=== PATIENT | male | born 1955 | race Caucasian/White ===

== ENCOUNTER 2019-05-12 20:36 | Emergency (ER) | payer OTHER, MEDICARE ==
--- NOTE | 2019-05-12 20:46 | PDOC ---
Rapid Medical Evaluation Time Seen by Provider: 05/12/19 20:40 Medical Evaluation: 05/12/19 20:40 The patient presents to the ER for detox for opioids and prescription pain killers. He states he relapsed after his R wrist re-set for a fracture. Took two percocets within half an hour. He reports taking 8 percocets today. He also drinks alcohol Exam: no gross neuro deficits, R arm in cast Orders: labs, urine Pt to proceed to the ER for further evaluation Discharge Disposition - Diagnosis Desire for detoxification - Referrals Referrals: Teena Madsen [Primary Care Provider] - - Patient Instructions - Post Discharge Activity
[2019-05-12 20:47] VITALS: BMI 27.8
[2019-05-12 21:23] LABS: EOS % 2.1 % (0-4.5); HEMATOCRIT 41.8 % (35.4-49); MCH 32.9 pg (25.7-33.7); MCHC 33.4 g/dl (32.0-35.9); MEAN CELL VOLUME 98.7 fl (80-96); MEAN PLT VOLUME 8.4 fl (7.5-11.1); NEUT % 55.9 % (42.8-82.8); PLATELET COUNT 163 K/MM3 (134-434); RBC 4.24 M/mm3 (4.00-5.60); RDW 14.8 % (11.9-15.9); WHITE BLOOD COUNT 7.6 K/mm3 (4.0-10.0)
[2019-05-12 21:52] LABS: ALBUMIN 4.3 g/dl (3.4-5.0); BILIRUBIN,TOTAL 0.3 mg/dL (0.2-1); BLOOD UREA NITROGEN 23.5 mg/dL (7-18); CALCIUM 9.6 mg/dL (8.5-10.1); CREATININE 1.3 mg/dL (0.55-1.3); POTASSIUM 4.1 mmol/L (3.5-5.1); TOT PROT 7.2 g/dl (6.4-8.2)
--- NOTE | 2019-05-12 22:00 | PDOC ---
History of Present Illness - General Chief Complaint: Substance Abuse Stated Complaint: DETOX Time Seen by Provider: 05/12/19 20:40 History Source: Patient Exam Limitations: No Limitations - History of Present Illness Initial Comments: 64 year old male with PMH opioid abuse, ETOH abuse, HTN, COPD, Factor 5 Leiden presented to ED for opioid detox. Pt reported since his recent orthopedic surgery, he has started taking Percocet again. He reported that he drinks 1L vodka a day, smokes nicotine and marijuana daily, and used 10 percocet pills today. Pt reported he last took any pills at 1530 today. Pt denied IV drug abuse , SI, HI. Pt denied nausea, vomiting, diarrhea, shortness of breath, chest pain. Pt reported diffuse pain all over. ROS General: denied fever, chills, generalized weakness. HEENT: denied sore throat, rhinorrhea, ear pain. Cardiovascular: denied chest pain, palpitations, syncope, diaphoresis. Respiratory: denied shortness of breath, cough, sputum production, hemoptysis. Gastrointestinal: denied abdominal pain, nausea, vomiting, diarrhea, constipation, blood in stool. Genitourinary: denied dysuria, increased urinary frequency, hematuria, urinary incontinence, flank pain. Back: denied back pain. Musculoskeletal: denied joint pain, muscle pain, joint swelling. Neurological: denied headache, dizziness, numbness, tingling, weakness. Integumentary: denied rash, laceration, abrasion. Hematologic/Lymphatic: denied bruising or bleeding. PE Constitutional: Well-nourished, Well-developed, appearing stated age. HEENT: head is normocephalic, atraumatic. EOMI. PERRLA. no posterior pharyngeal erythema.no tonsillar swelling or exudates bilaterally. uvula midline. no peritonsillar swelling, tenderness or abscess. no jaw tenderness or misalignment. no tongue fasciculations. Neck: supple. Full ROM. Cardiovascular: regular heart rhythm. no murmurs. no pericardial friction rub. Respiratory: clear to auscultation bilaterally. no crackles, rhonchi or wheezing. no stridor. Gastrointestinal: soft, nontender. normal bowel sounds. no rebound, guarding, masses. Extremities: peripheral pulses intact. no lower extremity edema. Neurological: CN 2-12 grossly intact. moves all four extremities. Psych: intoxicated. awake, alert, oriented x3. follows commands. answers questions appropriately. Past History - Past Medical History Allergies/Adverse Reactions: Allergies Allergy/AdvReac Type Severity Reaction Status Date / Time No Known Allergies Allergy Verified 05/13/19 12:04 Home Medications: Ambulatory Orders Amlodipine Besylate 10 mg PO DAILY 05/12/19 Apixaban [Eliquis] 5 mg PO DAILY 05/12/19 Multivitamin [One-Daily Multi-Vitamin] 1 each PO DAILY 05/12/19 Albuterol Sulfate Inhaler - 2 inhaler PO Q4HWA 05/13/19 Alprazolam [Alprazolam ER] 0.5 mg PO DAILY 05/13/19 Budesonide/Formeterol Fumarate [SYMBICORT 160/4.5mcg -] 2 inh PO BID 05/13/19 Ipratropium/Albuterol Sulfate [Combivent Respimat Inhal [place]] 4 gm IH BID 05/13 traZODone HCL [Trazodone HCl] 50 mg PO HS 05/13/19 HTN: Yes Other medical history: factor V - Suicide/Smoking/Psychosocial Hx Smoking History: Current every day smoker Number of Cigarettes Smoked Daily: 6 Information on smoking cessation initiated: No Hx Alcohol Use: Yes Drug/Substance Use Hx: Yes (oxycodone,hydrocodone,diazepam,trazodone) *Physical Exam - Vital Signs Last Vital Signs Temp Pulse Resp BP Pulse Ox 98.6 F 89 18 130/72 93 L 05/12/19 20:41 05/12/19 20:41 05/12/19 20:41 05/12/19 20:41 05/12/19 20:41 ED Treatment Course - LABORATORY CBC & Chemistry Diagram: 05/12/19 21:06 05/13/19 07:00 - ADDITIONAL ORDERS Additional order review: Laboratory Results 05/12/19 05/12/19 21:06 21:06 Sodium 142 Potassium 4.1 Chloride 110 H Carbon Dioxide 25 Anion Gap 7 L BUN 23.5 H Creatinine 1.3 Est GFR (CKD-EPI)AfAm 67.30 Est GFR (CKD-EPI)NonAf 58.07 Random Glucose 88 Calcium 9.6 Total Bilirubin 0.3 AST 35 ALT 55 Alkaline Phosphatase 73 Total Protein 7.2 Albumin 4.3 Acetaminophen 10.8 05/12/19 21:06 RBC 4.24 MCV 98.7 H MCHC 33.4 RDW 14.8 MPV 8.4 Neutrophils % 55.9 Lymphocytes % 36.0 Monocytes % 5.0 Eosinophils % 2.1 Basophils % 1.0 Medical Decision Making - Medical Decision Making 64 year old male with above PMH presented to ED for opioid and ETOH detox. Initial Vital Signs Temp Pulse Resp BP Pulse Ox 98.6 F 89 18 130/72 93 L 05/12/19 20:41 05/12/19 20:41 05/12/19 20:41 05/12/19 20:41 05/12/19 20:41 Afebrile. No tachycardia. No tachypnea. No hypotension. Mild hypoxia on room air. EKG performed at 2053: rate 78, regular rhythm, normal axis, normal intervals, no acute ST changes, QTc 419. Laboratory Results - last 24 hr 05/12/19 05/12/19 05/12/19 21:06 21:06 21:06 WBC 7.6 RBC 4.24 Hgb 14.0 Hct 41.8 MCV 98.7 H MCH 32.9 MCHC 33.4 RDW 14.8 Plt Count 163 MPV 8.4 Absolute Neuts (auto) 4.2 Neutrophils % 55.9 Lymphocytes % 36.0 Monocytes % 5.0 Eosinophils % 2.1 Basophils % 1.0 Nucleated RBC % 0 Sodium 142 Potassium 4.1 Chloride 110 H Carbon Dioxide 25 Anion Gap 7 L BUN 23.5 H Creatinine 1.3 Est GFR (CKD-EPI)AfAm 67.30 Est GFR (CKD-EPI)NonAf 58.07 Random Glucose 88 Calcium 9.6 Total Bilirubin 0.3 AST 35 ALT 55 Alkaline Phosphatase 73 Total Protein 7.2 Albumin 4.3 Acetaminophen 10.8 No leukocytosis. No anemia. No electrolyte abnormalities. No JUSTUS. Dehydrated. -IVF ordered Acetaminophen level within normal range. -Will trend at 4 hours -ETOH level added on 05/12/19 22:34 [facility] called by Dr. Velasquez, reported there are no male beds available tonight. Can send pt at 0800 tomorrow. 05/12/19 23:17 Pt found to be drinking alcohol from water bottle. Alcohol thrown away. 05/13/19 00:04 ETOH 240 Salicyclates 3.3 [facility] Poison Control consulted. 05/13/19 00:25 [facility] Poison Control advised repeating CMP/acetaminophen/salicyclate/etoh. Above ordered. If uptrending to give NAC. 05/13/19 01:01 Pt reassessed, sleeping comfortably, arousable to voice. 05/13/19 01:32 Lab called about salicyclate not pending. Reported the machine is running it. 05/13/19 01:46 ETOH 157 Salicyclate 2.5 Acetaminophen level 3.5 Pt signed out to night team. Plan for repeat CMP/acetaminophen/salicyclate at 0600 today. Plan for transport to [facility] at 0800 when beds open up. *DC/Admit/Observation/Transfer Diagnosis at time of Disposition: Desire for detoxification - Discharge Dispostion Disposition: HOME Condition at time of disposition: Improved - Referrals Referrals: Teena Madsen [Primary Care Provider] - - Patient Instructions Additional Instructions: Your lab results were normal, and you are medically cleared for detox. Please return to the Emergency Department if you develop severe withdrawal symptoms, including shaking, sweating, seizures, or hallucinations. Please follow up at [facility] for detox if they have a bed available. - Post Discharge Activity
[2019-05-12] MEDS ORDERED: SODIUM CHLORIDE 1,000 ML IV STA (22:08)
[2019-05-12] MEDS ORDERED: DICYCLOMINE HCL 10 MG CAPSULE PO ONE (22:20)
[2019-05-12] MEDS ORDERED: chlordiazePOXIDE HCL 25 MG CAPSULE PO ONE ×2 (22:20→23:55)
[2019-05-12] MEDS ORDERED: DICYCLOMINE HCL 10 MG CAPSULE ONE (22:50)
[2019-05-12] MEDS ORDERED: chlordiazePOXIDE HCL 25 MG CAPSULE ONE (22:50)
[2019-05-12] MEDS ORDERED: THIAMINE HCL 100 MG TABLET (FP) PO ONE (23:16)
[2019-05-12] MEDS ORDERED: MULTIVITAMINS (DAILY MVI) TABLET (FP) PO ONE (23:16)
[2019-05-12] MEDS ORDERED: FOLIC ACID 1 MG TABLET (FP) PO ONE (23:17)
[2019-05-12] MEDS ORDERED: THIAMINE HCL 100 MG TABLET (FP) ONE (23:37)
[2019-05-12] MEDS ORDERED: FOLIC ACID 1 MG TABLET (FP) ONE (23:37)
--- NOTE | 2019-05-12 23:39 | PDOC ---
Documentation entered by Shania Jones SCRIBE, acting as scribe for Mimi Velasquez DO. Mimi Velasquez DO: This documentation has been prepared by the Robert evangelista Brenda, SCRIBE, under my direction and personally reviewed by me in its entirety. I confirm that the documentation accurately reflects all work, treatment, procedures, and medical decision making performed by me. Attending Attestation - Resident Resident Name: Madeleine Willard - ED Attending Attestation I have performed the following: I have examined & evaluated the patient, The case was reviewed & discussed with the resident, I agree w/resident's findings & plan, Exceptions are as noted - HPI HPI: 05/12/19 23:27 The patient is a 64 year old male, with a significant PMH of opioid abuse, HTN, COPD and Factor 5 Leiden who presents to the emergency department asking for opioid and alcohol detox. Patient reported that he recently broke s right rm, and was prescribed oxycodone 10 mg. He also reports drinking 1L vodkas daily, smoking nicotine and marijuaa daily and used 10 oxycodone pills today at 3: 30pm. He also states having diffuse pain all over. The patient denies chest pain, shortness of breath. Denies fever, chills, nausea , vomiting, diarrhea and constipation. Denies dysuria, frequency, urgency and hematuria. Allergies: NKA Social history: Tobacco use, alcohol use, opioid use, marijuana use. PCP: [facility] - Physicial Exam PE: 05/12/19 23:27 GENERAL: (+) Intoxicated. (+) Smell of alcohol on breath. (+)Disheveled appearance. Awake, alert, and in no acute distress. HEAD: No signs of trauma EYES: PERRLA, EOMI, sclera anicteric, conjunctiva clear ENT: Auricles normal inspection, hearing grossly normal, nares patent, oropharynx clear without exudates. Moist mucosa NECK: Normal ROM, supple, no lymphadenopathy, JVD, or masses LUNGS: (+) Mild expiratory wheezes. Breath sounds equal. No crackles. HEART: Regular rate and rhythm, normal S1 and S2, no murmurs, rubs or gallops ABDOMEN: Soft, nontender, normoactive bowel sounds. No guarding, no rebound. No masses EXTREMITIES: (+) Right wrist in splint. Normal range of motion, no edema. No clubbing or cyanosis. No cords, erythema, or tenderness NEUROLOGICAL: Cranial nerves II through XII grossly intact. Normal speech, normal gait SKIN: Warm, Dry, normal turgor, no rashes or lesions noted. - Medical Decision Making 05/12/19 23:29 I, Dr. Mimi Velasquez, DO, attest that this document has been prepared under my direction and personally reviewed by me in its entirety. I further attest, that it accurately reflects all work, treatment, procedures and medical decision -making performed by me. a/p: 64yo male with opiate abuse/addiction and etoh abuse -pt arrives intoxicated stating he took 4 oxycodone 10mg/325mg tabs earlier tonight -states he took trazadone and xanax -states he wants detox -pt with a water bottle at the bedside filled with vodka which was removed by me -pt with smell of etoh on his breath -pt with splint to R wrist -pt denies si/hi -denies cp/sob, abd pain, no n/v/d -no tongue fasciculations/no tremors -no abd pain, no cramping -will send labs to medically clear -will monitor in the ED - pt currently not in withdrawal -case discussed with [facility] - bed not available until 8am tomorrow 05/13/19 00:17 pt with elevated asa, apap, etoh level call placed to poison control by the resident will continue ivf hydration and monitoring 05/13/19 01:46 repeat apap 3.5 etoh down to 150 pt currently sleeping, arousable denies taking asa, but states he takes excedrin for proctor 05/13/19 01:46 per poison control - monitor labs, if apap increases start NAC 05/13/19 01:47 asa 2.5 pt signed out to the oncoming team pending transfer to [facility] in the AM
[2019-05-13 01:41] LABS: BILIRUBIN,TOTAL 0.4 mg/dL (0.2-1); BLOOD UREA NITROGEN 27.6 mg/dL (7-18); CALCIUM 8.8 mg/dL (8.5-10.1); CREATININE 1.3 mg/dL (0.55-1.3); POTASSIUM 3.7 mmol/L (3.5-5.1); TOT PROT 6.9 g/dl (6.4-8.2)
[2019-05-13] MEDS ORDERED: SODIUM CHLORIDE 0.9% 1000 ML INFUS.BAG IV ONE (01:47)
--- NOTE | 2019-05-13 03:22 | PDOC ---
*Physical Exam - Vital Signs Last Vital Signs Temp Pulse Resp BP Pulse Ox 98.6 F 89 18 130/72 93 L 05/12/19 20:41 05/12/19 20:41 05/12/19 20:41 05/12/19 20:41 05/12/19 20:41 ED Treatment Course - LABORATORY CBC & Chemistry Diagram: 05/12/19 21:06 05/13/19 01:00 - ADDITIONAL ORDERS Additional order review: Laboratory Results 05/13/19 05/13/19 05/13/19 01:10 01:00 01:00 Sodium 142 Potassium 3.7 Chloride 107 Carbon Dioxide 26 Anion Gap 9 BUN 27.6 H Creatinine 1.3 Est GFR (CKD-EPI)AfAm 67.30 Est GFR (CKD-EPI)NonAf 58.07 Random Glucose 105 Calcium 8.8 Total Bilirubin 0.4 AST 34 ALT 53 Alkaline Phosphatase 65 Total Protein 6.9 Albumin 4.0 Salicylates 2.5 L Acetaminophen 3.5 Alcohol, Quantitative 157.5 H 05/13/19 05/12/19 05/12/19 01:00 21:06 21:06 Sodium 142 Potassium 4.1 Chloride 110 H Carbon Dioxide 25 Anion Gap 7 L BUN 23.5 H Creatinine 1.3 Est GFR (CKD-EPI)AfAm 67.30 Est GFR (CKD-EPI)NonAf 58.07 Random Glucose 88 Calcium 9.6 Total Bilirubin 0.3 AST 35 ALT 55 Alkaline Phosphatase 73 Total Protein 7.2 Albumin 4.3 Salicylates 3.3 Acetaminophen 10.8 Alcohol, Quantitative 158.4 H 240.8 H 05/12/19 21:06 RBC 4.24 MCV 98.7 H MCHC 33.4 RDW 14.8 MPV 8.4 Neutrophils % 55.9 Lymphocytes % 36.0 Monocytes % 5.0 Eosinophils % 2.1 Basophils % 1.0 - Medications Given in the ED: ED Medications Discontinued Medications Generic Name Dose Route Start Last Admin Trade Name Freq PRN Reason Stop Dose Admin Chlordiazepoxide HCl 50 mg 05/12/19 22:20 05/13/19 00:43 Librium - PO 05/12/19 22:21 Not Given ONCE ONE Chlordiazepoxide HCl 50 mg 05/12/19 23:55 05/12/19 23:58 Librium - PO 05/12/19 23:56 50 mg ONCE ONE Administration Dicyclomine HCl 10 mg 05/12/19 22:20 05/12/19 22:50 Bentyl - PO 05/12/19 22:21 10 mg ONCE ONE Administration Folic Acid 1 mg 05/12/19 23:17 05/13/19 00:43 Folic Acid - PO 05/12/19 23:18 1 mg ONCE ONE Administration Sodium Chloride 1,000 mls @ 1,000 mls/hr 05/12/19 22:08 05/12/19 22:50 Normal Saline - IV 05/12/19 23:07 1,000 mls/hr ASDIR STA Administration Multivitamins/Minerals/Vitamin C 1 tab 05/12/19 23:16 05/13/19 00:43 Tab-A-Vit - PO 05/12/19 23:17 1 tab ONCE ONE Administration Sodium Chloride 1,000 ml 05/13/19 01:47 05/13/19 02:35 Normal Saline - IV 05/13/19 01:48 1,000 ml ONCE ONE Administration Thiamine HCl 100 mg 05/12/19 23:16 05/13/19 00:43 Vitamin B1 - PO 05/12/19 23:17 100 mg ONCE ONE Administration Medical Decision Making - Medical Decision Making 05/13/19 03:[address] Sudheer David CMP, ASA, Tylenol levels at 6AM Send to [facility] at 8AM 05/13/19 03:44 Updated poison control, agreed with plan for 6AM repeat 05/13/19 06:45 Third set CMP / ASA / Acetaminophen sent Patient for transfer to [facility] at 8AM Signed out to day team *DC/Admit/Observation/Transfer Diagnosis at time of Disposition: Desire for detoxification - Discharge Dispostion Condition at time of disposition: Improved Decision to Admit order: No - Referrals Referrals: Teena Madsen [Primary Care Provider] - - Patient Instructions - Post Discharge Activity
[2019-05-13 07:58] LABS: ALBUMIN 3.4 g/dl (3.4-5.0); BILIRUBIN,TOTAL 0.4 mg/dL (0.2-1); BLOOD UREA NITROGEN 25.4 mg/dL (7-18); CALCIUM 8.6 mg/dL (8.5-10.1); CREATININE 1.1 mg/dL (0.55-1.3); POTASSIUM 5.3 mmol/L (3.5-5.1); TOT PROT 6.3 g/dl (6.4-8.2)
--- NOTE | 2019-05-13 08:33 | PDOC ---
*Physical Exam - Vital Signs Last Vital Signs Temp Pulse Resp BP Pulse Ox 97.3 F L 77 17 115/77 93 L 05/12/19 22:25 05/12/19 22:25 05/12/19 22:25 05/12/19 22:25 05/12/19 22:25 ED Treatment Course - LABORATORY CBC & Chemistry Diagram: 05/12/19 21:06 05/13/19 07:00 - ADDITIONAL ORDERS Additional order review: Laboratory Results 05/13/19 05/13/19 05/13/19 07:00 07:00 07:00 Sodium 142 Potassium 5.3 H Chloride 110 H Carbon Dioxide 29 Anion Gap 4 L BUN 25.4 H Creatinine 1.1 Est GFR (CKD-EPI)AfAm 82.37 Est GFR (CKD-EPI)NonAf 71.07 Random Glucose 85 Calcium 8.6 Total Bilirubin 0.4 AST 47 H ALT 48 Alkaline Phosphatase 57 Total Protein 6.3 L Albumin 3.4 Salicylates < 1.7 L Acetaminophen <2.0 Alcohol, Quantitative 05/13/19 05/13/19 05/13/19 01:10 01:00 01:00 Sodium 142 Potassium 3.7 Chloride 107 Carbon Dioxide 26 Anion Gap 9 BUN 27.6 H Creatinine 1.3 Est GFR (CKD-EPI)AfAm 67.30 Est GFR (CKD-EPI)NonAf 58.07 Random Glucose 105 Calcium 8.8 Total Bilirubin 0.4 AST 34 ALT 53 Alkaline Phosphatase 65 Total Protein 6.9 Albumin 4.0 Salicylates 2.5 L Acetaminophen 3.5 Alcohol, Quantitative 157.5 H 05/13/19 05/12/19 05/12/19 01:00 21:06 21:06 Sodium 142 Potassium 4.1 Chloride 110 H Carbon Dioxide 25 Anion Gap 7 L BUN 23.5 H Creatinine 1.3 Est GFR (CKD-EPI)AfAm 67.30 Est GFR (CKD-EPI)NonAf 58.07 Random Glucose 88 Calcium 9.6 Total Bilirubin 0.3 AST 35 ALT 55 Alkaline Phosphatase 73 Total Protein 7.2 Albumin 4.3 Salicylates 3.3 Acetaminophen 10.8 Alcohol, Quantitative 158.4 H 240.8 H 05/12/19 21:06 RBC 4.24 MCV 98.7 H MCHC 33.4 RDW 14.8 MPV 8.4 Neutrophils % 55.9 Lymphocytes % 36.0 Monocytes % 5.0 Eosinophils % 2.1 Basophils % 1.0 - Medications Given in the ED: ED Medications Discontinued Medications Generic Name Dose Route Start Last Admin Trade Name Alvin PRN Reason Stop Dose Admin Chlordiazepoxide HCl 50 mg 05/12/19 22:20 05/13/19 00:43 Librium - PO 05/12/19 22:21 Not Given ONCE ONE Chlordiazepoxide HCl 50 mg 05/12/19 23:55 05/12/19 23:58 Librium - PO 05/12/19 23:56 50 mg ONCE ONE Administration Dicyclomine HCl 10 mg 05/12/19 22:20 05/12/19 22:50 Bentyl - PO 05/12/19 22:21 10 mg ONCE ONE Administration Folic Acid 1 mg 05/12/19 23:17 05/13/19 00:43 Folic Acid - PO 05/12/19 23:18 1 mg ONCE ONE Administration Sodium Chloride 1,000 mls @ 1,000 mls/hr 05/12/19 22:08 05/12/19 22:50 Normal Saline - IV 05/12/19 23:07 1,000 mls/hr ASDIR STA Administration Multivitamins/Minerals/Vitamin C 1 tab 05/12/19 23:16 05/13/19 00:43 Tab-A-Vit - PO 05/12/19 23:17 1 tab ONCE ONE Administration Sodium Chloride 1,000 ml 05/13/19 01:47 05/13/19 02:35 Normal Saline - IV 05/13/19 01:48 1,000 ml ONCE ONE Administration Thiamine HCl 100 mg 05/12/19 23:16 05/13/19 00:43 Vitamin B1 - PO 05/12/19 23:17 100 mg ONCE ONE Administration Medical Decision Making - Medical Decision Making 05/13/19 08:32 Sign out received from Dr. Marrero. 64M presenting for alcohol, opioid detox. Plan for repeat CMP result, then transport back to [facility] for detox. 05/13/19 08:46 CMP resulted, plan for transport to [facility] via security after repeat vitals. *DC/Admit/Observation/Transfer Diagnosis at time of Disposition: Desire for detoxification - Discharge Dispostion Condition at time of disposition: Improved Decision to Admit order: No - Referrals Referrals: Teena Madsen [Primary Care Provider] - - Patient Instructions Additional Instructions: Your lab results were normal, and you are medically cleared for detox. Please return to the Emergency Department if you develop severe withdrawal symptoms, including shaking, sweating, seizures, or hallucinations. Please follow up at [facility] for detox if they have a bed available. - Post Discharge Activity
[2019-05-13 09:06] VITALS: BP 142/72; PULSE 87; TEMP 98.1
--- NOTE | 2019-05-13 14:23 | EKG ---
Test Reason : Blood Pressure : / mmHG Vent. Rate : 078 BPM Atrial Rate : 078 BPM P-R Int : 194 ms QRS Dur : 106 ms QT Int : 368 ms P-R-T Axes : 073 068 079 degrees QTc Int : 419 ms NORMAL SINUS RHYTHM POSSIBLE LEFT ATRIAL ENLARGEMENT INCOMPLETE RIGHT BUNDLE BRANCH BLOCK SEPTAL INFARCT , AGE UNDETERMINED ABNORMAL ECG NO PREVIOUS ECGS AVAILABLE Confirmed by BEVERLEY ALFRED MD ([id number]) on 05/13/2019 2:23:18 PM Referred By: Confirmed By:BEVERLEY ALFRED MD
== END 2019-05-13 09:02 | disposition other institution (70) ==
LOC: JER 20:36
PROC: 3E0337Z Introduction of Electrolytic and Water Balance Substance into Peripheral Vein, Percutaneous Approach (ICD-10-PCS; principal; 2019-05-12)
DX: F10.129 Alcohol abuse with intoxication, unspecified (principal); F11.10 Opioid abuse, uncomplicated; F12.10 Cannabis abuse, uncomplicated; I10 Essential (primary) hypertension; J44.9 Chronic obstructive pulmonary disease, unspecified; D68.51 Activated protein C resistance; F17.210 Nicotine dependence, cigarettes, uncomplicated; E86.0 Dehydration; Y90.8 Blood alcohol level of 240 mg/100 ml or more
CPT/HCPCS: 36415; 80053; 80307; 85025; 93005; 93010; 99284-25; J7030

== ENCOUNTER 2019-05-13 10:48 | Inpatient (IN) | payer OTHER ==
[2019-05-13 12:32] VITALS: BMI 31.6
--- NOTE | 2019-05-13 13:18 | HP ---
CIWA Score Nausea/Vomitin-No Nausea/No Vomiting Muscle Tremors: 1-None Visible, but [place] Anxiety: 0-No Anxiety, at Ease Agitation: 0-Normal Activity Paroxysmal Sweats: No Perspiration Orientation: 0-Oriented Tacttile Disturbances: 0-None Auditory Disturbances: 0-None Visual Disturbances: 0-None Headache: 0-None Present CIWA-Ar Total Score: 1 - Admission Criteria [facility]ASAS Guidelines: Admission for Medically Managed Detox: Requires at least one of the followin. CIWA greater than 12 2. Seizures within the past 24 hours 3. Delirium tremens within the past 24 hours 4. Hallucinations within the past 24 hours 5. Acute intervention needed for co occurring medical disorder 6. Acute intervention needed for co occurring psychiatric disorder 7. Severe withdrawal that cannot be handled at a lower level of care (continued vomiting, continued diarrhea, abnormal vital signs) requiring intravenous medication and/or fluids 8. Admission [facility] Chief Complaint: detox from EtOH, opioids Allergies/Adverse Reactions: Allergies Allergy/AdvReac Type Severity Reaction Status Date / Time No Known Allergies Allergy Verified 05/13/19 12:04 History of Present Illness: 64 year old male with PMH opioid abuse, ETOH abuse, HTN, COPD, Factor 5 Leiden, h/o leg DVT(on Eliquis), RUE fx after falling down a few steps onto sidewalk( February 2019), presented to [facility] for opioid, EtOH detox. Takes oxycodones x4-6 10mg pills daily. Last usage in the AM. First prescribed opioids 1982 for broken back. Has rx for oxycodone 10. Denies opioid-related blackouts, OD. Drinks 1L vodka daily. First usage in the noon-time. Regular drinking since mid- 31yo. Last alcoholic drink at ~1130. Has had "thousands" of black-outs. Has slight tremors after not drinking. Denies seizures. Takes diazepam x2 for sleep every night. Cocaine use years prior. Denies heroin, IVDU. Smokes MJ daily. Smokes 1pack per 2-3days. Lives alone in his mother's house. Retire automobile and property underwriter. DWI 2011. Incarcerated for 3ys due to DWI. Last detox-rehab was [facility] February 2019 but left early d/t of his mother. - Ebola screening Have you traveled outside of the country in the last 21 days: No Have you had contact with anyone from an Ebola affected area: No Do you have a fever: No - Review of Systems EENT: denies: Blurred Vision, Double Vision, Difficulty Swallowing Respiratory: reports: Wheezing. denies: Cough, Shortness of Breath, Productive cough Cardiac: denies: Chest Pain, Palpitations GI: denies: Abdominal Distended, Constipated, Diarrhea, Nausea, Vomiting : denies: Burning, Frequency Musculoskeletal: reports: Back Pain, Joint Pain (shoulders b/l, knee/s bl, Right elbow), Muscle Weakness (Right-handed weakness) Neuro: denies: Headache, Numbness, Seizure, Tremors, Unsteady Gait Patient History - Patient Medical History Hx Chronic Obstructive Pulmonary Disease (COPD): No Hx Hypertension: Yes - Patient Surgical History Hx Orthopedic Surgery: Yes (hips replacement b/l, Right elbow, Right knee) - Smoking Cessation Smoking history: Current every day smoker Have you smoked in the past 12 months: Yes Aproximately how many cigarettes per day: 6 Initiated information on smoking cessation: No - Substances abused Alcohol Substance route: Oral Frequency: Daily Amount used: 1- 1.75 litres vodka Age of first use: 22 Date of last use: 05/13/19 Other Other (specify): hydrocodone/hydrocodone Substance route: Oral Frequency: Daily Amount used: 6-8 Age of first use: 21 Date of last use: 05/13/19 Admission Physical Exam S - Vital Signs Vital Signs: Vital Signs - 24 hr 05/13/19 12:17 Temperature 97.9 F Pulse Rate 80 Respiratory 16 Rate Blood Pressure 152/98 - Physical General Appearance: Yes: No Apparent Distress, Obese. No: Irritable, Sweating, Anxious HEENTM: Yes: Normocephalic. No: Pale Conjunctivae R, Pale Conjunctivae L, Scleral Ictenus R, Scleral Ictenus L Respiratory: Yes: No Accessory Muscle Use, Wheezing (expiratory wheezes) Neck: Yes: Supple, Trachea in good position Cardiology: Yes: Regular Rhythm, Regular Rate, S1, S2. No: Irregularly Irregular Abdominal: Yes: Non Tender, Soft, Protuberent. No: Distended, Guarding Extremities: Yes: Other (RUE in short cast. Right hand with weakness in flexion/ extension/adduction/abduction of fingers; sensation intact) Neurological: Yes: Fully Oriented, Alert Breathalyzer - Breathalyzer Breathalyzer: 0 Urine Drug Screen - Test Device Lot number: [id number] Expiration date: 01/21/21 - Control Is test valid?: Yes - Results Drug screen NEGATIVE: No Urine drug screen results: OXY-Oxycodone, BZO-Benzodiazepines Inpatient Rehab Admission - Rehab Decision to Admit Inpatient rehab admission?: No
[2019-05-13] MEDS ORDERED: MAG HYDROX/AL HYDROX/SIMETH 30 ML UNIT-DOSE CUP PO PRN (14:05)
[2019-05-13] MEDS ORDERED: ACETAMINOPHEN 325 MG TABLET (FP) PO PRN (14:05)
[2019-05-13] MEDS ORDERED: MELATONIN 5 MG TABLETS PO PRN (14:05)
[2019-05-13] MEDS ORDERED: MAGNESIUM HYDROX 2400MG/30ML ORAL SUSPENSION 30 ML CUP PO PRN (14:05)
[2019-05-13] MEDS ORDERED: MENTHOL/PHENOL 1 EACH UD MM PRN (14:05)
[2019-05-13] MEDS ORDERED: hydrOXYzine PAMOATE 25 MG CAPSULE (FP) PO PRN (14:05)
[2019-05-13] MEDS ORDERED: IBUPROFEN 400 MG TABLET (FP) PO PRN (14:05)
[2019-05-13] MEDS ORDERED: chlordiazePOXIDE HCL 25 MG CAPSULE PO PRN (14:05)
[2019-05-13] MEDS ORDERED: MAGNESIUM CITRATE 300 ML BOTTLE PO PRN (14:05)
[2019-05-13] MEDS ORDERED: BISMUTH SUBSALICYLATE 524 MG/30 ML UD PO PRN (14:05)
--- NOTE | 2019-05-13 14:22 | PN ---
Teaching Attending Note Name of Resident: Preet Blanchard ATTENDING PHYSICIAN STATEMENT I saw and evaluated the patient. I reviewed the resident's note and discussed the case with the resident. I agree with the resident's findings and plan as documented. SUBJECTIVE: 64 y.o. male for etoh detox , transferred form [facility] where he hwas overnight for detox, was given 1 dose of Librium in the ED . Reports liquor several bottles /day since 30's , + blackouts, denies seizures, + occasional tremors if not drinking , starts drinking around noon , multiple DWI s in the past " close to 10 " , longest sobriety while incarcerated for DWI , latest use yesterday in the ED per medical record notes pt had bottle of alcohol in ED . Reports Oxycodone use rx and taking more than rx , not ready to d/c oxycodone use , planning to return to prescriber for further rx . cocaine use - remote cannabis- daily tobacco : 1/2 ppd PMHx: HTN, COPD, Factor 5 [place], h/o leg DVT, RUE fx after falling down a few steps onto sidewalk(February 2019), OBJECTIVE: wnwd , anxious , agitated Vital Signs - 24 hr 05/13/19 12:17 Temperature 97.9 F Pulse Rate 80 Respiratory 16 Rate Blood Pressure 152/98 ASSESSMENT AND PLAN: ETOH dependence - Librium taper pt is not agreeable to d/c Oxycodone use at this time .
[2019-05-13] MEDS ORDERED: ALBUTEROL SO4 2.5/IPRATROPIUM 0.5 INH SOL 3 ML VIAL.NEB. NEB PRN (16:02)
[2019-05-13] MEDS: chlordiazePOXIDE HCL 25 MG CAPSULE PO SCH ×2 (17:15→22:11)
[2019-05-13] MEDS ORDERED: BUDESONIDE/FORMETEROL FUMARATE 160/4.5 mcg INHALER IH SCH (22:00)
[2019-05-13] MEDS ORDERED: PATIENT'S OWN MEDICATION (NON-FORMULARY) (Ipratropium/Albuterol Sulfate [Combivent Respima IH SCH (22:00)
[2019-05-13] MEDS: APIXABAN 5 MG TABLET PO SCH (22:11)
[2019-05-13] MEDS: traZODone HCL 50 MG TABLET (FP) PO SCH (22:12)
[2019-05-13] MEDS: THIAMINE HCL 100 MG TABLET (FP) PO SCH (22:12)
[2019-05-14] MEDS: chlordiazePOXIDE HCL 25 MG CAPSULE PO SCH ×4 (05:32→22:05)
[2019-05-14] MEDS: ALBUTEROL SO4 8 GM HFA INHALER IH PRN (05:34)
[2019-05-14] MEDS ORDERED: APIXABAN 5 MG TABLET PO SCH (10:00)
[2019-05-14] MEDS: PRENATAL VITAMINS W/ FOLIC ACID TABLET (FP) PO SCH (10:24)
[2019-05-14] MEDS: amLODIPine BESYLATE 10 MG TABLET (FP) PO SCH (10:24)
[2019-05-14] MEDS: APIXABAN 5 MG TABLET PO SCH ×2 (10:25→22:04)
[2019-05-14] MEDS: BUDESONIDE/FORMETEROL FUMARATE 160/4.5 mcg INHALER IH SCH ×2 (10:25→22:05)
[2019-05-14] MEDS: NICOTINE 14 MG/24 HOURS TOPICAL PATCH TD SCH (10:28)
--- NOTE | 2019-05-14 16:19 | PN ---
S CIWA - CIWA Score Nausea/Vomitin-No Nausea/No Vomiting Muscle Tremors: 2 Anxiety: 4-Mod. Anxious/Guarded Agitation: 3 Paroxysmal Sweats: No Perspiration Orientation: 0-Oriented Tacttile Disturbances: 0-None Auditory Disturbances: 0-None Visual Disturbances: 0-None Headache: 0-None Present CIWA-Ar Total Score: 9 S Progress Note (SOAP) Subjective: Body Aches, Anxious, Restless, Interrupted Sleep. Objective: PATIENT A & O X 3, OBSERVED AMBULATING ON DETOX UNIT UNASSISTED. IN NO ACUTE DISTRESS. 05/14/19 16:07 Vital Signs Temperature 97.1 F L 05/14/19 13:31 Pulse Rate 80 05/14/19 13:31 Respiratory Rate 18 05/14/19 13:31 Blood Pressure 136/82 05/14/19 13:31 O2 Sat by Pulse Oximetry (%) Laboratory Tests 05/13/19 14:00 RPR Titer Nonreactive DETOX ADMISSION LAB RESULTS NOTED. 05/14/19 16:19 Assessment: 05/14/19 16:19 WITHDRAWAL SYMPTOMS. HYPERKALEMIA. 05/14/19 16:22 Plan: CONTINUE DETOX. INCREASE DAILY PO WATER INTAKE. REPEAT K LEVEL ORDERED FOR TOMORROW AM FOR ELEVATED K LEVEL NOTED ON DETOX ADMISSION LABORATORY ASSESSMENT.
[2019-05-14] MEDS: traZODone HCL 50 MG TABLET (FP) PO SCH (22:04)
[2019-05-14] MEDS: THIAMINE HCL 100 MG TABLET (FP) PO SCH (22:05)
[2019-05-15] MEDS: chlordiazePOXIDE HCL 25 MG CAPSULE PO SCH ×4 (05:57→22:52)
[2019-05-15] MEDS: PRENATAL VITAMINS W/ FOLIC ACID TABLET (FP) PO SCH (10:06)
[2019-05-15] MEDS: APIXABAN 5 MG TABLET PO SCH ×2 (10:06→22:45)
[2019-05-15] MEDS: BUDESONIDE/FORMETEROL FUMARATE 160/4.5 mcg INHALER IH SCH ×2 (10:06→22:47)
[2019-05-15] MEDS: amLODIPine BESYLATE 10 MG TABLET (FP) PO SCH (10:06)
[2019-05-15] MEDS: NICOTINE 14 MG/24 HOURS TOPICAL PATCH TD SCH (10:06)
--- NOTE | 2019-05-15 12:29 | PN ---
S CIWA - CIWA Score Nausea/Vomitin-No Nausea/No Vomiting Muscle Tremors: 2 Anxiety: 2 Agitation: 2 Paroxysmal Sweats: No Perspiration Orientation: 0-Oriented Tacttile Disturbances: 0-None Auditory Disturbances: 0-None Visual Disturbances: 0-None Headache: 0-None Present CIWA-Ar Total Score: 6 BHS Progress Note (SOAP) Subjective: doing well with librium detox regimen sleep better at night ambulating on hallway social with peers in day room less tremor Objective: 05/15/19 12:29 Vital Signs Temperature 98.6 F 05/15/19 09:28 Pulse Rate 86 05/15/19 09:28 Respiratory Rate 18 05/15/19 09:28 Blood Pressure 144/86 05/15/19 09:28 O2 Sat by Pulse Oximetry (%) Laboratory Last Values Potassium 3.9 mmol/L (3.5-5.1) 05/15/19 07:40 RPR Titer Nonreactive (NONREACTIVE) 05/13/19 14:00 05/15/19 12:31 see lab 05/12/19 ER lab 05/15/19 12:32 K+ within normal Assessment: 05/15/19 12:32 alcohol withdrawal sx Plan: continue librium detox regimen
[2019-05-15] MEDS: ALBUTEROL SO4 8 GM HFA INHALER IH PRN ×2 (13:28→19:03)
[2019-05-15] MEDS: ACETAMINOPHEN 325 MG TABLET (FP) PO PRN (20:44)
[2019-05-15] MEDS: traZODone HCL 50 MG TABLET (FP) PO SCH (22:45)
[2019-05-15] MEDS: THIAMINE HCL 100 MG TABLET (FP) PO SCH (22:45)
[2019-05-15] MEDS: METHOCARBAMOL 500 MG TABLET PO PRN (22:48)
[2019-05-16] MEDS ORDERED: chlordiazePOXIDE HCL 10 MG CAPSULE PO PRN
[2019-05-16] MEDS ORDERED: chlordiazePOXIDE HCL 10 MG CAPSULE PO SCH (01:00)
[2019-05-16] MEDS: chlordiazePOXIDE HCL 10 MG CAPSULE PO SCH ×2 (08:22→10:19)
[2019-05-16] MEDS: NICOTINE 14 MG/24 HOURS TOPICAL PATCH TD SCH (10:18)
[2019-05-16] MEDS: PRENATAL VITAMINS W/ FOLIC ACID TABLET (FP) PO SCH (10:19)
[2019-05-16] MEDS: amLODIPine BESYLATE 10 MG TABLET (FP) PO SCH (10:19)
[2019-05-16] MEDS: APIXABAN 5 MG TABLET PO SCH ×2 (10:19→17:26)
[2019-05-16] MEDS: ALBUTEROL SO4 8 GM HFA INHALER IH PRN ×3 (10:19→23:09)
[2019-05-16] MEDS: BUDESONIDE/FORMETEROL FUMARATE 160/4.5 mcg INHALER IH SCH ×2 (10:19→17:27)
[2019-05-16] MEDS: ACETAMINOPHEN 325 MG TABLET (FP) PO PRN (10:20)
--- NOTE | 2019-05-16 13:43 | PN ---
S CIWA - CIWA Score Nausea/Vomitin-No Nausea/No Vomiting Muscle Tremors: 1-None Visible, but [place] Anxiety: 2 Agitation: 1-Slight > Activity Paroxysmal Sweats: No Perspiration Orientation: 0-Oriented Tacttile Disturbances: 0-None Auditory Disturbances: 0-None Visual Disturbances: 0-None Headache: 0-None Present CIWA-Ar Total Score: 4 BHS Progress Note (SOAP) Subjective: doing well with librium detox regimen requests to be discharge one day earlier due to feeling better today and denies need for aftercare encourage community support self help group Objective: 05/16/19 13:44 Vital Signs Temperature 98.7 F 05/16/19 13:26 Pulse Rate 72 05/16/19 13:26 Respiratory Rate 18 05/16/19 13:26 Blood Pressure 135/81 05/16/19 13:26 O2 Sat by Pulse Oximetry (%) Laboratory Last Values Laboratory 05/16/19 13:46 Laboratory 05/13/19 05/15/19 14:00 07:40 Potassium 3.9 mmol/L mmol/L (3.5-5.1) RPR Titer Nonreactive (NONREACTIVE) 05/16/19 13:46 lab see 05/13/19 Assessment: 05/16/19 13:46 alcohol withdrawal sx Plan: continue librium detox regimen patient prefers to leave one day early modify librium detox regimen
[2019-05-16] MEDS: METHOCARBAMOL 500 MG TABLET PO PRN ×2 (16:00→22:04)
[2019-05-16] MEDS ORDERED: chlordiazePOXIDE HCL 10 MG CAPSULE PO ONE (22:00)
[2019-05-16] MEDS: traZODone HCL 50 MG TABLET (FP) PO SCH (22:04)
[2019-05-16] MEDS: THIAMINE HCL 100 MG TABLET (FP) PO SCH (22:04)
[2019-05-17] MEDS ORDERED: chlordiazePOXIDE HCL 10 MG CAPSULE PO SCH (05:00)
[2019-05-17] MEDS ORDERED: chlordiazePOXIDE HCL 10 MG CAPSULE PO ONE (05:00)
[2019-05-17] MEDS ORDERED: amLODIPine BESYLATE 10 MG TABLET (FP) PO SCH (06:00)
[2019-05-17 06:14] VITALS: BP 118/74; PULSE 68; TEMP 96.7
[2019-05-17] MEDS: BUDESONIDE/FORMETEROL FUMARATE 160/4.5 mcg INHALER IH SCH (06:17)
[2019-05-17] MEDS: APIXABAN 5 MG TABLET PO SCH (06:17)
[2019-05-17] MEDS: ALBUTEROL SO4 8 GM HFA INHALER IH PRN (06:18)
[2019-05-17] MEDS: METHOCARBAMOL 500 MG TABLET PO PRN (06:20)
[2019-05-17] MEDS: PRENATAL VITAMINS W/ FOLIC ACID TABLET (FP) PO SCH (09:03)
[2019-05-17] MEDS: NICOTINE 14 MG/24 HOURS TOPICAL PATCH TD SCH (09:03)
--- NOTE | 2019-05-17 12:43 | DS ---
[facility] Detox Discharge Summary Admission Date: 05/13/19 Discharge Date: 05/17/19 - History Present History: Alcohol Dependence Additional Comments: did well with librium detox regimen no complication through out the detox stay patient is alert oriented x 3 cardiac S1S2 regular rate rhythm respiratory clear lung sound bilaterally on auscultation abdomen soft no rebound tenderness right wrist cast intact fingers mobile warm brisk capillary refilled Pertinent Past History: patient agrees to follow up with orthopedic for right wrist fx as well as follow up with cardiology for hypertension - Physical Exam Results Vital Signs: Vital Signs Temperature 96.7 F L 05/17/19 06:12 Pulse Rate 68 05/17/19 06:12 Respiratory Rate 18 05/17/19 06:12 Blood Pressure 118/74 05/17/19 06:12 O2 Sat by Pulse Oximetry (%) Pertinent Admission Physical Exam Findings: alcohol withdrawal sx Laboratory Last Values Potassium 3.9 mmol/L (3.5-5.1) 05/15/19 07:40 RPR Titer Nonreactive (NONREACTIVE) 05/13/19 14:00 lab see ER report - Treatment Hospital Course: Detox Protocol Followed, Detoxed Safely, Responded well, Discharged Condition Good, Rehab Referral Accepted Patient has Accepted a Rehab Referral to: [facility] - Medication Discharge Medications: Ambulatory Orders Multivitamin [One-Daily Multi-Vitamin] 1 each PO DAILY 05/12/19 Albuterol Sulfate Inhaler - 2 inhaler PO Q4HWA 05/13/19 Budesonide/Formeterol Fumarate [SYMBICORT 160/4.5mcg -] 2 inh PO BID 05/13/19 Ipratropium/Albuterol Sulfate [Combivent Respimat 20-100 Mcg] 4 gm IH BID traZODone HCL [Trazodone HCl] 50 mg PO HS 05/13/19 Amlodipine Besylate 10 mg PO DAILY #30 tablet 05/16/19 Apixaban [Eliquis] 5 mg PO DAILY #30 tablet 05/16/19 Budesonide/Formeterol Fumarate [SYMBICORT 160/4.5mcg -] 2 puff IH BID #1 inhaler 05/16/19 - Diagnosis (1) Alcohol dependence with uncomplicated withdrawal Status: Acute (2) Asthma Status: Chronic Qualifiers: Asthma severity: mild Asthma persistence: intermittent Asthma complication type: with status asthmaticus Qualified Code(s): J45.22 - Mild intermittent asthma with status asthmaticus (3) Hypertension Status: Chronic Qualifiers: Hypertension type: essential hypertension Qualified Code(s): I10 - Essential (primary) hypertension - AMA Did Patient Leave Against Medical Advice: No CIWA Score - CIWA Score Nausea/Vomitin-No Nausea/No Vomiting Muscle Tremors: None Anxiety: 0-No Anxiety, at Ease Agitation: 0-Normal Activity Paroxysmal Sweats: No Perspiration Orientation: 0-Oriented Tacttile Disturbances: 0-None Auditory Disturbances: 0-None Visual Disturbances: 0-None Headache: 0-None Present CIWA-Ar Total Score: 0
[2019-05-18] MEDS ORDERED: chlordiazePOXIDE HCL 10 MG CAPSULE PO ONE (05:00)
== END 2019-05-17 09:01 | disposition home or self-care (01) | DRG 897 ==
LOC: YASAS 10:48 → Y3N 14:36
PROVIDERS: ADMIT Surgery; ATTEND Surgery
PROC: HZ2ZZZZ Detoxification Services for Substance Abuse Treatment (ICD-10-PCS; principal; 2019-05-13)
DX: F10.230 Alcohol dependence with withdrawal, uncomplicated (principal); J45.22 Mild intermittent asthma with status asthmaticus; D68.51 Activated protein C resistance; F11.10 Opioid abuse, uncomplicated; F17.210 Nicotine dependence, cigarettes, uncomplicated; I10 Essential (primary) hypertension; E78.5 Hyperlipidemia, unspecified; J44.9 Chronic obstructive pulmonary disease, unspecified; E66.09 Other obesity due to excess calories; Z68.31 Body mass index [BMI] 31.0-31.9, adult; Z86.718 Personal history of other venous thrombosis and embolism; Z96.643 Presence of artificial hip joint, bilateral; S62.101D Fracture of unspecified carpal bone, right wrist, subsequent encounter for fracture with routine healing; W19.XXXD Unspecified fall, subsequent encounter
CPT/HCPCS: 36415; 80053; 80307; 84132; 85025; 86593; 93005; 93010; 94640; 99284-25; J7030